=== PATIENT | female | born 1965 | race African-American/Black ===

== ENCOUNTER → 2017-08-01 | Outpatient (CLI) | payer BC ==
[~2017-08-01] MED LIST: IBUP1POW8; ZYRTEC
[2017-08-01 10:55] LABS: Follicle Stimulating Hormone 108.82 IU/L (SEE BELOW); Leuteinizing Hormone 55.5 IU/L
== END | disposition home or self-care (01) ==
LOC: LAB 09:37
PROVIDERS: ATTEND Obstetrics & Gynecology
DX: N95.1 Menopausal and female climacteric states (principal)
CPT/HCPCS: 36415; 82670; 83001; 83002; 84403; 84443

== ENCOUNTER → 2019-01-18 | Day surgery (SDC) | payer BC ==
[2019-01-15 15:39] LABS: Basophils # (auto) 0.1 uL; Basophils % (auto) 0.7 % (0.0-2.0); Eosinophils # (auto) 0.1 uL; Eosinophils % (auto) 1.4 % (0.0-7.0); Hematocrit 41.2 % (36.0-46.0); Hemoglobin 13.7 g/dL (12.2-16.2); Lymphocytes # (auto) 3.2 uL; Lymphocytes % (auto) 45.8 % (10.0-50.0); Mean Corpuscular Hemoglobin 31.4 pg (28.0-32.0); Mean Corpuscular Hgb Conc. 33.2 g/dL (32.0-36.0); Mean Corpuscular Volume 94.6 fL (80.0-100.0); Monocytes # (auto) 0.5 uL; Monocytes % (auto) 7.7 % (0.0-12.0); Neutrophils # (auto) 3.1 uL; Neutrophils % (auto) 44.4 % (37.0-80.0); Platelet Count (auto) 265 10^3/uL (140-450); Red Blood Cells 4.35 10^6/uL (4.0-5.20); Red Cell Distribution Width 13.8 % (11.8-14.3)
[2019-01-15 15:57] LABS: Partial Thromboplastin Time 24.9 sec (23.64-32.05)
[~2019-01-18] VITALS: Ht 170.2 cm; Wt 81.6 kg
[~2019-01-18] MED LIST changes: +CYCL-611 PO; +ETOD400T3 PO; -IBUP1POW8; +LIDOCAINE VISCOUS 2% 15ML UD ONE; +SODIUM CHLORIDE LOCK 10 ML ONE; -ZYRTEC; +diphenhdrAMINE HCL 50 MG/1 ML VL ONE
[2019-01-18] MEDS: MIDAZOLAM HCL 5 MG/ML-1ML VIAL ONE ×3 (10:40→10:51)
[2019-01-18] MEDS: fentaNYL CITRATE 100 MCG/2 ML VL ONE ×3 (10:40→10:51)
[2019-01-18 11:37] VITALS: BP 139/88
== END | disposition home or self-care (01) ==
LOC: GI 09:35
PROVIDERS: ATTEND Internal Medicine Gastroenterology
DX: Z12.11 Encounter for screening for malignant neoplasm of colon (principal); K57.30 Diverticulosis of large intestine without perforation or abscess without bleeding; K64.8 Other hemorrhoids; K29.50 Unspecified chronic gastritis without bleeding; K44.9 Diaphragmatic hernia without obstruction or gangrene; Z79.899 Other long term (current) drug therapy; Z98.51 Tubal ligation status; Z98.890 Other specified postprocedural states; Z88.0 Allergy status to penicillin
CPT/HCPCS: 36415; 43239; 45378; 85025; 85610; 85730; 88305; 88342; J1200; J2250; J3010; J7030; 99152; 99153

== ENCOUNTER 2019-07-15 14:11 | Emergency (ER) | payer BC ==
[~2019-07-15] VITALS: Ht 172.7 cm; Wt 79.4 kg
[~2019-07-15 14:11] MED LIST changes: -LIDOCAINE VISCOUS 2% 15ML UD ONE; -SODIUM CHLORIDE LOCK 10 ML ONE; -diphenhdrAMINE HCL 50 MG/1 ML VL ONE
[2019-07-15 16:52] VITALS: BP 128/83
== END 2019-07-15 17:05 | disposition home or self-care (01) ==
LOC: ER 14:11
DX: M23.207 Derangement of unspecified meniscus due to old tear or injury, left knee (principal); Z91.81 History of falling; Z88.0 Allergy status to penicillin; Z79.899 Other long term (current) drug therapy
CPT/HCPCS: 73562

== ENCOUNTER → 2020-04-20 | Outpatient (CLI) | payer BC | END | disposition home or self-care (01) | LOC: LAB 07:55 | PROVIDERS: ATTEND Nurse Practitioner Family | DX: N39.0 Urinary tract infection, site not specified (principal) | CPT/HCPCS: 87086 ==

== ENCOUNTER → 2022-02-03 | Outpatient (CLI) | payer BC | END | disposition home or self-care (01) | LOC: LAB 06:24 | PROVIDERS: ATTEND Licensed Practical Nurse | DX: N39.0 Urinary tract infection, site not specified (principal) | CPT/HCPCS: 87086 ==